=== PATIENT | male | born 1985 | race Caucasian/White ===

== ENCOUNTER 2020-12-28 12:24 | Emergency (ER) | payer BC ==
[~2020-12-28] VITALS: Ht 188 cm; Wt 113.6 kg
[~2020-12-28 12:24] MED LIST: ADVIL200 MG PO; FLEXERIL 1010 MG/TAB PO; MOTRIN 800800 MG/TAB PO; NAPROSYN375 MG PO; NO HOME MEDICATIONS; NORCO 325 MG-51 TAB PO; PERCOCET 325 MG1 TA2 PO; PREDNISONE20 MG PO; VALIUM 5MG T5 MG/TAB PO
[2020-12-28 13:32] LABS: BASO % 0.4 % (0.0-2.0); EOS # 0.2 (0.0-0.7); EOS % 1.8 % (0-4.0); GRAN # 6.1 (1.4-6.5); GRAN % 59.8 % (42.2-75.2); HEMATOCRIT 43.4 % (42.0-52.0); HEMOGLOBIN 13.9 g/dl (13.5-18.0); LYMPH # 3.4 (1.2-3.4); LYMPH % 32.7 % (20.0-51.0); MEAN CELL VOLUME 84 fl (80.0-100.0); MEAN CORPUSCULAR HEMOGLOBIN 27 pg (27.0-31.0); MEAN CORPUSCULAR HGB CONC 32 g/dl (33.0-37.0); MEAN PLATELET VOLUME 10.5 fl (7.4-10.4); MONO # 0.5 (0.1-0.6); PLATELET COUNT 245 K/mm3 (130-400); RED BLOOD COUNT 5.16 M/mm3 (4.20-5.60); REDCELL DISTRIBUTION WIDTH-CV 13.4 % (11.5-14.5)
[2020-12-28 13:44] LABS: ALBUMIN 4.1 gm/dL (3.5-5.0); BILIRUBIN,TOTAL 0.3 mg/dL (0.0-1.0); CALCIUM 9.9 mg/dL (8.4-10.2); CREATININE, serum 0.67 (0.66-1.25); POTASSIUM 3.8 mmol/L (3.4-5.0); TOTAL PROTEIN 7.6 gm/dL (6.4-8.2)
[2020-12-28] MEDS ORDERED: AMOXICILLIN875 MG PO (14:24)
[2020-12-28] MEDS ORDERED: CLEOCIN HCL300 MG PO (14:24)
[2020-12-28 14:48] VITALS: BP 144/86; PULSE 64; TEMP 98.5
== END 2020-12-28 14:40 | disposition home or self-care (01) ==
LOC: COL.ER 12:24
PROVIDERS: Physician Assistant
DX: L03.213 Periorbital cellulitis (principal); F17.210 Nicotine dependence, cigarettes, uncomplicated
CPT/HCPCS: J0696; J1885; J7030

== ENCOUNTER 2022-04-12 06:40 | Emergency (ER) | payer BC ==
[~2022-04-12] VITALS: Ht 188 cm; Wt 125.0 kg
[~2022-04-12 06:40] MED LIST changes: +AMOXICILLIN875 MG PO; +CLEOCIN HCL300 MG PO
[2022-04-12 07:10] VITALS: BP 145/87; TEMP 98.1
[2022-04-12 07:49] LABS: STREP SCREEN NEGATIVE
[2022-04-12 08:00] VITALS: PULSE 79
== END 2022-04-12 08:00 | disposition home or self-care (01) ==
LOC: COL.ER 06:40
PROVIDERS: Emergency Medicine
DX: J02.9 Acute pharyngitis, unspecified (principal); F17.210 Nicotine dependence, cigarettes, uncomplicated; Z28.310 Unvaccinated for COVID-19
CPT/HCPCS: J8540

== ENCOUNTER 2022-04-14 11:01 | Emergency (ER) | payer BC ==
[~2022-04-14] VITALS: Ht 188 cm; Wt 125.0 kg
[2022-04-14 11:18] VITALS: BP 141/89; TEMP 98.3
[2022-04-14] MEDS ORDERED: AMOXICILLIN 50500 MG PO (11:37)
[2022-04-14] MEDS ORDERED: PERCOCET 325 MG1 TA2 PO (11:37)
[2022-04-14 11:53] VITALS: PULSE 90
== END 2022-04-14 11:55 | disposition home or self-care (01) ==
LOC: COL.ER 11:01
DX: S02.5XXA Fracture of tooth (traumatic), initial encounter for closed fracture (principal); X58.XXXA Exposure to other specified factors, initial encounter

== ENCOUNTER 2023-08-31 22:02 | Emergency (ER) | payer SELFPAY ==
[~2023-08-31] VITALS: Ht 188 cm; Wt 109.1 kg
[~2023-08-31 22:02] MED LIST changes: +AMOXICILLIN 50500 MG PO
[2023-08-31 22:23] VITALS: TEMP 97.3
[2023-09-01 01:36] VITALS: BP 144/78; PULSE 64
== END 2023-09-01 01:47 | disposition home or self-care (01) ==
LOC: COL.ER 22:02
DX: S61.217A Laceration without foreign body of left little finger without damage to nail, initial encounter (principal); Z23 Encounter for immunization; W26.8XXA Contact with other sharp object(s), not elsewhere classified, initial encounter; Y99.0 Civilian activity done for income or pay

== ENCOUNTER 2023-11-26 20:51 | Emergency (ER) | payer SELFPAY ==
[~2023-11-26] VITALS: Ht 188 cm; Wt 113.6 kg
[2023-11-26 21:50] VITALS: BP 165/92; PULSE 75; TEMP 98.5
== END 2023-11-26 21:50 | disposition home or self-care (01) ==
LOC: COL.ER 20:51
DX: S61.214A Laceration without foreign body of right ring finger without damage to nail, initial encounter (principal); W45.8XXA Other foreign body or object entering through skin, initial encounter; Y92.59 Other trade areas as the place of occurrence of the external cause; Y99.0 Civilian activity done for income or pay